=== PATIENT | male | born 1965 | race African-American/Black ===

== ENCOUNTER 2022-12-01 19:54 | Emergency (ER) | payer OTHER ==
[~2022-12-01] VITALS: Ht 190.5 cm; Wt 90.0 kg
[~2022-12-01 19:54] MED LIST: HYDR453.3 TP
[2022-12-01] MEDS ORDERED: KETOROLAC 60MG/2ML VIAL IM ONE (21:30)
[2022-12-01] MEDS ORDERED: ACETAMINOPHEN 325MG TABLET PO ONE (21:30)
[2022-12-01 21:34] VITALS: BP 164/90
== END 2022-12-01 21:39 | disposition home or self-care (01) ==
LOC: ER 19:54
DX: M79.642 Pain in left hand (principal); F12.10 Cannabis abuse, uncomplicated; F15.10 Other stimulant abuse, uncomplicated
CPT/HCPCS: 99283

== ENCOUNTER 2024-05-17 16:13 | Emergency (ER) | payer MEDICAID ==
[~2024-05-17] VITALS: Ht 177.8 cm; Wt 95.0 kg
[~2024-05-17 16:13] MED LIST changes: +AMLO5TAB88 PO; +ASPI-1406 PO
[2024-05-17 16:43] VITALS: O2SAT 99
[2024-05-17 18:59] VITALS: BP 165/90; PULSE 83; RESP 16; TEMP 36.72516; O2SAT 99
[2024-05-17] MEDS: OXYMETAZOLINE HCL NASAL SPRAY 15ML BOTHNSTRLS SCH (19:02)
== END 2024-05-17 19:00 | disposition home or self-care (01) ==
LOC: ER 16:13
DX: I25.2 Old myocardial infarction (principal); I10 Essential (primary) hypertension; F14.10 Cocaine abuse, uncomplicated; F12.10 Cannabis abuse, uncomplicated; F15.10 Other stimulant abuse, uncomplicated
CPT/HCPCS: 99282; Z7610